=== PATIENT | female | born 2005 ===

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

== ENCOUNTER 2024-03-13 21:48 | Emergency (ER) | payer SELFPAY | END 2024-03-13 22:22 | disposition home or self-care (01) | LOC: DL.ED 21:48 | DX: S73.101A Unspecified sprain of right hip, initial encounter (principal); X50.1XXA Overexertion from prolonged static or awkward postures, initial encounter | CPT/HCPCS: 99282; 99283 ==